=== PATIENT | female | born 1990 | race Native Hawaiian/Other Pacific Islander ===

== ENCOUNTER 2022-06-25 09:13 | Emergency (ER) | payer OTHER ==
[~2022-06-25] VITALS: Ht 170.2 cm; Wt 79.4 kg
[2022-06-25 09:20] VITALS: TEMP 97.9
[2022-06-25 10:24] LABS: PLATELET COUNT 418 K/uL (152-353)
[2022-06-25 10:42] LABS: POTASSIUM 3.7 mmol/L (3.6-5.2)
[2022-06-25 12:41] VITALS: BP 131/79
== END 2022-06-25 12:43 | disposition home or self-care (01) ==
LOC: ED 09:13
PROVIDERS: Family Medicine
DX: K59.09 Other constipation (principal); K31.84 Gastroparesis; R11.10 Vomiting, unspecified
CPT/HCPCS: 36415; 80053; 80307; 81002; 81025; 82150; 83690; 85027; 96360; 96374; 96375; 99284; J2405; J2765

== ENCOUNTER 2022-10-12 11:46 | Emergency (ER) | payer OTHER ==
[~2022-10-12] VITALS: Ht 170.2 cm; Wt 89.4 kg
[2022-10-12 11:50] VITALS: BP 108/63; TEMP 98.8
== END 2022-10-12 13:13 | disposition home or self-care (01) ==
LOC: ED 11:46
DX: K02.9 Dental caries, unspecified (principal)
CPT/HCPCS: 99282; J1885